=== PATIENT | female | born 1950 | race Hispanic/Latino ===

== ENCOUNTER 2023-01-01 05:33 | Day surgery (SDC) | payer MEDICARE ==
[2022-12-31 10:30] VITALS: BP 104/50; PULSE 65; RESP 18
[~2023-01-01] VITALS: Ht 157.5 cm; Wt 53.7 kg
[2023-01-01] VITALS (12 sets, daily range): BP systolic 103–201; BP diastolic 37–88; PULSE 54–91; RESP 11–20
[~2023-01-01 05:33] MED LIST: ATOR20TA65 PO; CARV3.12 PO; DAPA5TAB PO; FOLI0.8T22 PO; FURO20TA4 PO; INSU300I SQ; IRON150C18 PO; LETR2.5T7 PO; SACU1TAB7 PO; SPIR25TA PO
[2023-01-01] MEDS ORDERED: 0.9%NACL 1000ML 1,000 ML IV ONE (06:18)
[2023-01-01] MEDS ORDERED: LIDOCAINE HCL 400MG/20ML VIAL ONE (07:13)
[2023-01-01] MEDS ORDERED: PROPOFOL 10 MG/ML 20ML VIAL IV ONE (07:13)
[2023-01-01] MEDS ORDERED: SIMETHICONE 40 MG/0.6 ML ML ONE (07:17)
== END 2023-01-01 08:57 | disposition home or self-care (01) ==
LOC: DAH 05:33 → ENDO 05:33
PROVIDERS: ATTEND Internal Medicine Gastroenterology
DX: Z12.11 Encounter for screening for malignant neoplasm of colon (principal); D50.0 Iron deficiency anemia secondary to blood loss (chronic); D12.2 Benign neoplasm of ascending colon; K92.1 Melena; R19.7 Diarrhea, unspecified; K29.50 Unspecified chronic gastritis without bleeding; I10 Essential (primary) hypertension; E11.9 Type 2 diabetes mellitus without complications; E78.5 Hyperlipidemia, unspecified; Z79.01 Long term (current) use of anticoagulants; Z79.899 Other long term (current) drug therapy; Z98.891 History of uterine scar from previous surgery; Z85.3 Personal history of malignant neoplasm of breast; Z98.84 Bariatric surgery status
CPT/HCPCS: 82948 ×2; 43239; 45385; J3490; J7030 ×2; J2704; A4620; A4215 ×2; A4223; A7002; A4222; A4221; A4663; A4216; A4606

== ENCOUNTER → 2023-02-27 | Outpatient (CLI) | payer MEDICARE ==
[2023-02-27 12:45] LABS: ALBUMIN 2.8 g/dL (3.5-5.0); BILIRUBIN,TOTAL 0.3 mg/dL (0.2-1.0); CREATININE 2.2 mg/dL (0.5-1.5); POTASSIUM 4.5 mmol/L (3.5-5.1); TOTAL PROTEIN, SERUM 6.9 g/dL (6.0-8.3)
== END | disposition home or self-care (01) ==
LOC: LAB 10:34
PROVIDERS: ATTEND Internal Medicine Cardiovascular Disease
DX: I50.22 Chronic systolic (congestive) heart failure (principal)
CPT/HCPCS: 36415; 80053; 83880

== ENCOUNTER → 2024-05-19 | Outpatient (CLI) | payer MEDICARE | END | disposition home or self-care (01) | LOC: SHCH 07:39 | PROVIDERS: ATTEND Internal Medicine Cardiovascular Disease | DX: I08.0 Rheumatic disorders of both mitral and aortic valves (principal); I50.42 Chronic combined systolic (congestive) and diastolic (congestive) heart failure | CPT/HCPCS: 93306 ==